=== PATIENT | female | born 1975 | race Caucasian/White ===

== ENCOUNTER 2021-10-22 10:42 | Outpatient (CLI) | payer OTHER, SELFPAY ==
[2021-10-22 13:39] LABS: Albumin* 4.5 g/dL (3.3-5.0)
[2021-10-22 13:40] LABS: Chloride* 104 mmol/L (96-114); Potassium* 4.1 mmol/L (3.6-5.1); Sodium* 139 mmol/L (135-149)
[2021-10-22 13:42] LABS: Aspartate Amino Transferase* 28 U/L (12-35); Bilirubin Total* 1.5 mg/dL (0.1-1.5); Carbon Dioxide* 26 mmol/L (20-32); Cholesterol* 203 mg/dL (90-199); Creatinine* 0.7 mg/dL (0.5-1.5); Estimated Glomerular Filt Rate 108 ml/min; Total Protein* 7.6 g/dL (6.0-8.3)
[2021-10-22 13:43] LABS: Alanine Aminotransferase* 14 U/L (4-35); Alkaline Phosphatase* 62 U/L (40-150); Blood Urea Nitrogen* 16 mg/dL (5-24); Calcium* 8.6 mg/dL (8.4-10.6); Glucose* 103 mg/dL (60-115); HDL Cholesterol* 63 mg/dL (>=50); LDL Cholesterol Calculated 123 mg/dL (<100); Triglycerides* 84 mg/dL (40-149)
== END 2021-10-22 10:43 | disposition home or self-care (01) ==
PROVIDERS: PCP Physician Assistant Medical; Visit Provider Physician Assistant Medical
DX: Z00.00 Encounter for general adult medical examination without abnormal findings (principal); L50.1 Idiopathic urticaria; Z13.29 Encounter for screening for other suspected endocrine disorder; Z13.6 Encounter for screening for cardiovascular disorders; Z13.1 Encounter for screening for diabetes mellitus
CPT/HCPCS: 80053; 80061; 84443

== ENCOUNTER 2022-04-12 10:00 | Outpatient (CLI) | payer BC, SELFPAY ==
--- NOTE | 2022-04-12 10:15 | CRLHL7_ITS ---
For Patients: As a result of the Cures Act, medical imaging exams and procedure reports are released immediately into your electronic medical record. You may view this report before your referring provider. If you have questions, please contact your health care provider. BILATERAL SCREENING MAMMOGRAM WITH COMPUTER-AIDED DETECTION AND TOMOSYNTHESIS TECHNIQUE: CC and MLO views were obtained. These mammographic images have been obtained using full-field digital technique. These mammographic images were interpreted with the benefit of computer-aided detection. Breast tomosynthesis was used in this interpretation. COMPARISON FILM: 04/09/21, 03/23/20, 02/19/19. FINDINGS: The breasts are heterogeneously dense, which may obscure small masses. IMPRESSION: There is no radiographic evidence for malignancy. ASSESSMENT: BI-RADS Category 1: Negative RECOMMENDATION: Routine screening mammogram in 1 year. A lay language report of this examination will be provided to the patient. BARB STONE M.D. Diagnostic/Nuclear Medicine Radiologist [email or web address] JANE:anish Transcribed: 04/12/2022, 4:[address]/Dictated by: Barb Stone MD @ 04/12/2022 10:50:00 AM (Electronically Signed)
== END 2022-04-12 10:01 | disposition home or self-care (01) ==
LOC: MAMMO 10:03
PROVIDERS: PCP Physician Assistant Medical; Visit Provider Physician Assistant Medical
DX: Z12.31 Encounter for screening mammogram for malignant neoplasm of breast (principal); R92.2 Inconclusive mammogram
CPT/HCPCS: 77063; 77067

== ENCOUNTER 2022-08-28 21:30 | Outpatient (REF) | payer BC, SELFPAY ==
[2022-08-28 22:10] LABS: Albumin* 4.4 g/dL (3.3-5.0)
[2022-08-28 22:12] LABS: Bilirubin Direct* 0.3 mg/dL (0.0-0.5); Bilirubin Total* 1.3 mg/dL (0.1-1.5)
[2022-08-28 22:13] LABS: Alanine Aminotransferase* 19 U/L (4-35); Alkaline Phosphatase* 48 U/L (40-150); Aspartate Amino Transferase* 34 U/L (12-35); Total Protein* 7.2 g/dL (6.0-8.3)
[2022-08-28 23:11] LABS: Basophils Absolute Auto 0.02 K/uL (0.00-0.30); Basophils Percent Auto 0.4 % (0.0-3.0); Eosinophils Absolute Auto 0.05 K/uL (0.00-0.50); Eosinophils Percent Auto 0.9 % (0.0-7.0); Hematocrit 38.4 % (33.0-51.0); Hemoglobin* 12.4 gm/dL (12.0-16.0); Immature Granulocytes Abs Auto 0.02 K/uL (0.00-0.30); Immature Granulocytes Pct Auto 0.4 %; Immature Reticulocyte Fraction 6.8 % (3.0-15.9); Lymphocytes Absolute Auto 1.38 K/uL (0.90-2.90); Lymphocytes Percent Auto 25.7 % (20-44); Mean Corpuscular HGB Conc 32 gm/dL (32-36); Mean Corpuscular Hemoglobin 30 pg (26-34); Mean Corpuscular Volume 92 fL (80-100); Neutrophils Absolute Auto 3.48 K/uL (1.7-7.0); Neutrophils Percent Auto 64.6 % (42.0-72.0); Platelet Count* 313 K/uL (140-440); RDW Coefficient of Variation % 12.8 % (11.5-15.5); Red Blood Count 4.17 m/uL (4.00-5.20); Reticulocyte Hemoglobin Equivi 30.6 pg (29.0-35.0); Reticulocyte Percent 1.3 % (0.5-2.0); Reticulocytes Absolute 0.05 # (0.03-0.08); White Blood Count* 5.38 K/uL (4.50-11.00)
[2022-08-28 23:16] LABS: Slide Review Reflex No
== END 2022-08-28 21:31 | disposition home or self-care (01) ==
LOC: NPINS 21:30
PROVIDERS: PCP Physician Assistant Medical; Referring Provider Physician Assistant Medical; Visit Provider Allergy & Immunology
DX: L50.1 Idiopathic urticaria (principal)
CPT/HCPCS: 80076; 85025; 85045

== ENCOUNTER 2022-10-24 08:42 | Outpatient (CLI) | payer BC, SELFPAY ==
[2022-10-24 16:37] LABS: Chlamydia DNA Amplified* NOT DETECTED (No Detected); GC DNA Amplified* NOT DETECTED (No Detected)
== END 2022-10-24 08:43 | disposition home or self-care (01) ==
PROVIDERS: PCP Physician Assistant Medical; Visit Provider Physician Assistant Medical
DX: Z00.00 Encounter for general adult medical examination without abnormal findings (principal); Z13.29 Encounter for screening for other suspected endocrine disorder; Z13.6 Encounter for screening for cardiovascular disorders; Z13.1 Encounter for screening for diabetes mellitus; Z11.3 Encounter for screening for infections with a predominantly sexual mode of transmission
CPT/HCPCS: 80061; 84443; 87491; 87591

== ENCOUNTER 2023-04-14 10:00 | Outpatient (CLI) | payer BC, SELFPAY ==
--- NOTE | 2023-04-14 10:15 | CRLHL7_ITS ---
For Patients: As a result of the Century Cures Act, medical imaging exams and procedure reports are released immediately into your electronic medical record. You may view this report before your referring provider. If you have questions, please contact your health care provider. BILATERAL SCREENING MAMMOGRAM WITH COMPUTER-AIDED DETECTION AND TOMOSYNTHESIS TECHNIQUE: CC and MLO views were obtained. These mammographic images have been obtained using full-field digital technique. These mammographic images were interpreted with the benefit of computer-aided detection. Breast Tomosynthesis was used in this interpretation. COMPARISON FILM: 04/12/22, 04/09/21, 03/23/20. FINDINGS: The breasts are heterogeneously dense, which may obscure small masses. IMPRESSION: There is no radiographic evidence for malignancy. ASSESSMENT: BI-RADS Category 1: Negative RECOMMENDATION: Routine screening mammogram in 1 year. A lay language report of this examination will be provided to the patient. Joe Cohen M.D. Diagnostic Radiologist [email or web address] SP/Dictated by: Joe Cohen MD @ 04/14/2023 10:42:00 AM (Electronically Signed)
== END 2023-04-14 10:01 | disposition home or self-care (01) ==
LOC: MAMMO 10:01
PROVIDERS: PCP Physician Assistant Medical; Visit Provider Physician Assistant Medical
DX: Z12.31 Encounter for screening mammogram for malignant neoplasm of breast (principal); R92.2 Inconclusive mammogram
CPT/HCPCS: 77063; 77067

== ENCOUNTER 2023-11-05 08:42 | Outpatient (CLI) | payer BC, SELFPAY | END 2023-11-05 08:43 | disposition home or self-care (01) | PROVIDERS: PCP Physician Assistant Medical; Visit Provider Physician Assistant Medical | DX: Z00.00 Encounter for general adult medical examination without abnormal findings (principal); Z13.29 Encounter for screening for other suspected endocrine disorder; Z13.6 Encounter for screening for cardiovascular disorders; Z13.1 Encounter for screening for diabetes mellitus | CPT/HCPCS: 80053; 80061; 84443 ==

== ENCOUNTER 2024-04-15 10:17 | Outpatient (CLI) | payer BC, SELFPAY ==
--- NOTE | 2024-04-15 10:45 | CRLHL7_ITS ---
For Patients: As a result of the Century Cures Act, medical imaging exams and procedure reports are released immediately into your electronic medical record. You may view this report before your referring provider. If you have questions, please contact your health care provider. BILATERAL SCREENING MAMMOGRAM WITH COMPUTER-AIDED DETECTION AND TOMOSYNTHESIS TECHNIQUE: CC and MLO views were obtained. These mammographic images have been obtained using full-field digital technique. These mammographic images were interpreted with the benefit of computer-aided detection. Breast Tomosynthesis was used in this interpretation. COMPARISON FILM: 04/14/23, 04/12/22, 04/09/21. FINDINGS: The breasts are heterogeneously dense, which may obscure small masses IMPRESSION: There is no radiographic evidence for malignancy. ASSESSMENT: BI-RADS Category 1: Negative RECOMMENDATION: Routine screening mammogram in 1 year. A lay language report of this examination will be provided to the patient. Joe Cohen M.D. Diagnostic Radiologist [email or web address] RAJ/rosy / bM/Dictated by: Joe Cohen MD @ 04/15/2024 11:23:00 AM (Electronically Signed)
== END 2024-04-15 10:18 | disposition home or self-care (01) ==
LOC: MAMMO 10:19
PROVIDERS: PCP Physician Assistant Medical; Visit Provider Physician Assistant Medical
DX: Z12.31 Encounter for screening mammogram for malignant neoplasm of breast (principal); R92.333 Mammographic heterogeneous density, bilateral breasts
CPT/HCPCS: 77063; 77067

== ENCOUNTER 2024-11-17 08:10 | Outpatient (CLI) | payer BC, SELFPAY | END 2024-11-17 08:11 | disposition home or self-care (01) | PROVIDERS: PCP Physician Assistant Medical; Visit Provider Physician Assistant Medical | DX: Z00.00 Encounter for general adult medical examination without abnormal findings (principal); N95.1 Menopausal and female climacteric states; E78.5 Hyperlipidemia, unspecified; Z79.899 Other long term (current) drug therapy | CPT/HCPCS: 80053; 80061; 82306; 84439; 84443 ==

== ENCOUNTER 2024-12-20 10:06 | Outpatient (CLI) | payer BC, SELFPAY | END 2024-12-20 10:07 | disposition home or self-care (01) | LOC: NFLDREF 12-22 16:01 | PROVIDERS: PCP Physician Assistant Medical; Referring Provider Physician Assistant Medical; Visit Provider Physician Assistant Medical | DX: R10.13 Epigastric pain (principal) | CPT/HCPCS: 80076; 83520; 84443; 87086 ==

== ENCOUNTER 2024-12-28 07:07 | Outpatient (CLI) | payer BC, SELFPAY ==
--- NOTE | 2024-12-28 07:15 | CRLHL7_ITS ---
For Patients: As a result of the Century Cures Act, medical imaging exams and procedure reports are released immediately into your electronic medical record. You may view this report before your referring provider. If you have questions, please contact your health care provider. INDICATION: Epigastric pain COMPARISON: 06/26/2010, 10/13/2012 TECHNIQUE: Real time vega scale imaging and color Doppler analysis was performed of the right upper quadrant. FINDINGS: The patient`s liver is of normal size and has uniform echogenicity. There is a normal appearance of the hepatic IVC and proximal abdominal aorta. There is no evidence of ascites. The gallbladder is of normal size and there is no evidence of intraluminal stones or sludge. The gallbladder wall measures 1.3 mm in thickness. The common bile duct is of normal size and measures 5.0 mm in diameter at the level of the levon hepatis. The pancreas appears normal. Echogenic nonshadowing focus within the right kidney measures 5 x 3 x 4 millimeters. The right kidney measures 10.5 cm in length. IMPRESSION: Normal gallbladder. 5 millimeter nonshadowing stone right kidney. No hydronephrosis. Dictated by Joe Cohen MD @ 12/28/2024 8:37:54 AM (Electronically Signed)
== END 2024-12-28 07:08 | disposition home or self-care (01) ==
LOC: US 07:07
PROVIDERS: PCP Physician Assistant Medical; Visit Provider Physician Assistant Medical
DX: R10.13 Epigastric pain (principal); N20.0 Calculus of kidney
CPT/HCPCS: 76705